=== PATIENT | female | born 2005 | race Caucasian/White ===

== ENCOUNTER 2024-10-11 14:24 | Emergency (ER) | payer MEDICAID, OTHER ==
[~2024-10-11] VITALS: Ht 175.3 cm; Wt 113.6 kg
[~2024-10-11 14:24] MED LIST: LEVO75TA4 PO
[2024-10-11 14:50] VITALS: TEMP 98.6
[2024-10-11 15:20] LABS: PLATELET COUNT (AUTO) 291 K/uL (150-450); RED BLOOD CELL COUNT(AUTO) 4.78 MIL/uL (4.00-5.20); RED CELL DISTRIBUTION WIDTH 19.8 % (11.5-14.5); WHITE BLOOD COUNT (AUTO) 8.0 K/uL (4.5-11.0)
[2024-10-11 15:21] LABS: CALCIUM, TOTAL 9.0 mg/dL (8.8-10.5); CREATININE 0.55 mg/dL (0.60-1.30); GLOMERULAR FILTR. RATE CALC > 60 mL/min (>60); GLUCOSE,RANDOM 103 mg/dL (70-110); SODIUM SERUM 139 mmol/L (136-145); UREA NITROGEN, BLOOD 9 mg/dL (7-18)
[2024-10-11 15:50] LABS: RBC MORPHOLOGY COMMENT ABNORMAL RBC MORPH
[2024-10-11 16:12] LABS: COVID AG,FIA SOURCE NASAL SWAB
[2024-10-11 16:39] LABS: SARS-COV2 (COVID) ANTIGEN,FIA Negative (Negative)
[2024-10-11 16:43] LABS: INFLUENZA TYPE A NEGATIVE FOR TYPE A (NEGATIVE); INFLUENZA TYPE B NEGATIVE FOR TYPE B (NEGATIVE)
[2024-10-11 19:09] VITALS: BP 116/80; PULSE 82; RESP 18; O2SAT 99
== END 2024-10-11 22:00 | disposition left against medical advice (07) ==
LOC: EMS 14:24
DX: R51.9 Headache, unspecified (principal); R11.10 Vomiting, unspecified; R50.9 Fever, unspecified; Z20.822 Contact with and (suspected) exposure to COVID-19; Z53.21 Procedure and treatment not carried out due to patient leaving prior to being seen by health care provider
CPT/HCPCS: 80048; 85025; 87804